=== PATIENT | male | born 1980 | race Two or more races ===

== ENCOUNTER 2019-12-31 04:37 | Emergency (ER) | payer MEDICAID ==
[~2019-12-31] VITALS: Ht 182.9 cm; Wt 95.3 kg
[2019-12-31 04:37] VITALS: BP 140/88
--- NOTE | 2019-12-31 05:10 | PHYS DOC ---
Past History Past Medical History: Alcoholism, Bipolar, Schizophrenia Past Medical History DJD Additional Past Surgical Histo: Back surgery Smoking: Cigarettes Alcohol Use: Heavy Drug Use: None General Adult EDM: Chief Complaint: "Phantom smell" HPI: HPI: 39-year-old male with past medical history of schizophrenia and bipolar disorder presents with report of "phantom smells "and "olfactory hallucinations "x2 days. Patient concerned that they are "spraying something in the air to get rid of COVID ". Patient reports he has been drinking and drank 1 pint this evening. Denies any current drug use. Patient reportedly was recently seen in the [place], [place] emergency department and sent to to [place], [place] for inpatient psychiatric admission. Patient recently released and reports he is c urrently living with his father. Patient reports he got dizzy this evening but subsequently went to and got something to eat and now feels better. Review of Systems: Review of Systems: Constitutional: Denies fever or chills Eyes: Denies redness or eye pain HENT: Denies nasal congestion or sore throat; reports "phantom smells/olfactory hallucinations " Respiratory: Denies cough or shortness of breath Cardiovascular: Denies chest pain or palpitations GI: Denies abdominal pain, nausea, or vomiting : Denies dysuria or hematuria Musculoskeletal: Denies back pain or joint pain Integument: Denies rash or skin lesions Neurologic: Denies headache, focal weakness or sensory changes; reports dizziness Complete systems were reviewed and found to be within normal limits, except as documented in this note. Physical Exam: PE: Constitutional: Well developed, well nourished, poor hygiene HENT: Normocephalic, atraumatic Eyes: PERRL, EOMI, conjunctiva normal, no discharge Neck: Normal range of motion, supple Lungs & Thorax: No respiratory distress, equal chest rise and fall Abdomen: Soft, no tenderness Skin: Warm, dry, no erythema, no rash Extremities: No tenderness, ROM intact, no edema Neurologic: Alert and oriented X 3, no focal deficits noted, steady gait Psychologic: Affect agitated, paranoid, hyperverbal EKG: EKG: [] Radiology/Procedures: Radiology/Procedures: [] Course & Med Decision Making: Course & Med Decision Making Patient presents with HPI and physical exam concerning for paranoid schizophrenic episode. Patient recently released from [place], [place] for inpatient psychiatric stay. Patient does not appear to be risk to himself at this time. Patient advised would need close follow-up with psychiatric services and would happily give him the address and number for the [facility]. Advised he would not need blood work evaluation at this time as his symptoms seem consistent for a paranoid schizophrenic episode. Patient became disgruntled with this information and asked if he left now would he be charged for this visit. Patient advised that I was unaware, but he likely would still receive a bill. Patient subsequently made disparaging comments to myself and other staff members and left the department prior to discharge paperwork or outpatient psychiatric service information. Patient eloped with a steady gait out of the emergency department. Gino Disclaimer: Gino Disclaimer: This electronic medical record was generated, in whole or in part, using a voice recognition dictation system. Departure Departure: Impression: Primary Impression: Schizophrenia Qualified Codes: F20.9 - Schizophrenia, unspecified Additional Impressions: Eloped from emergency department Olfactory hallucinations Disposition: 07 AGAINST MEDICAL ADVICE (Elopement) Condition: GUARDED Referrals: PCP,NO (PCP) Patient Instructions: Hallucinations and Delusions, Schizophrenia Justification of Admission: Justification of Admission: Justification of Admission Dx: N/A LACIE ESPINOZA DO Dec 31, 2019 05:10
== END 2019-12-31 05:09 | disposition left against medical advice (07) ==
LOC: ER 04:37
DX: F20.9 Schizophrenia, unspecified (principal); R44.2 Other hallucinations; F31.9 Bipolar disorder, unspecified; F10.20 Alcohol dependence, uncomplicated; F17.210 Nicotine dependence, cigarettes, uncomplicated; Y90.9 Presence of alcohol in blood, level not specified
CPT/HCPCS: 99281